=== PATIENT | female | born 1990 | race Caucasian/White ===

== ENCOUNTER 2018-12-26 16:37 | Emergency (ER) | payer OTHER ==
[2018-12-26] MEDS ORDERED: SODIUM CHLORIDE 1,000 ML IV STA (16:44)
[2018-12-26] MEDS ORDERED: ONDANSETRON 4 MG/2 ML VIAL IVPUSH ONE (16:44)
--- NOTE | 2018-12-26 16:44 | PDOC ---
Rapid Medical Evaluation Time Seen by Provider: 12/26/18 16:42 Medical Evaluation: 12/26/18 16:42 I have performed a brief in-person evaluation of this patient. The patient presents with a chief complaint of: abdominal and perirectal pain Pertinent physical exam findings: epigastric tenderness with guarding. rectal- deferred I have ordered the following: abd w/u The patient will proceed to the ED for further evaluation. Discharge Disposition - Diagnosis Abdominal pain - Referrals - Patient Instructions - Post Discharge Activity
[2018-12-26 16:45] VITALS: TEMP 97.8; BMI 30.9
[2018-12-26] MEDS ORDERED: ONDANSETRON 4 MG/2 ML VIAL ONE (16:59)
[2018-12-26 17:24] LABS: BASO % 0.5 % (0-2.0); EOS % 3.9 % (0-4.5); HEMATOCRIT 40.7 % (32.4-45.2); HEMOGLOBIN 13.3 GM/dL (10.7-15.3); LYMPH % 27.9 % (8-40); MCH 29.4 pg (25.7-33.7); MCHC 32.7 g/dl (32.0-36.0); MEAN CELL VOLUME 90.1 fl (80-96); MEAN PLT VOLUME 9.7 fl (7.5-11.1); MONO % 6.4 % (3.8-10.2); NEUT % 61.3 % (42.8-82.8); PLATELET COUNT 225 K/MM3 (134-434); RBC 4.51 M/mm3 (3.60-5.2); RDW 13.5 % (11.6-15.6); WHITE BLOOD COUNT 8.7 K/mm3 (4.0-10.0)
[2018-12-26 18:00] LABS: ALBUMIN 3.6 g/dl (3.4-5.0); BILIRUBIN,TOTAL 0.7 mg/dL (0.2-1); BLOOD UREA NITROGEN 8.3 mg/dL (7-18); CALCIUM 8.8 mg/dL (8.5-10.1); CREATININE 0.7 mg/dL (0.55-1.3); POTASSIUM 4.2 mmol/L (3.5-5.1)
[2018-12-26] MEDS ORDERED: ACETAMINOPHEN 1000 MG/100 ML VIAL (NON FORMULARY) IVPB ONE (18:05)
[2018-12-26 18:07] LABS: URINE APPEARANCE CLEAR; URINE BILIRUBIN NEGATIVE (NEGATIVE); URINE COLOR YELLOW; URINE GLUCOSE (UA) NEGATIVE (NEGATIVE); URINE KETONE TRACE (NEGATIVE); URINE LEUK ESTERASE NEGATIVE (NEGATIVE); URINE NITRITE NEGATIVE (NEGATIVE); URINE PROTEIN NEGATIVE (NEGATIVE); URINE UROBILINOGEN 0.2 mg/dL (0.2-1.0)
[2018-12-26] MEDS ORDERED: ACETAMINOPHEN INJECTION 100 ML IVPB ONE (18:09)
[2018-12-26] MEDS ORDERED: FAMOTIDINE 20 MG/50 ML IVPB 20 MG/50 ML MG IVPB ONE ×2 (19:01→20:23)
[2018-12-26] MEDS ORDERED: MAG HYDROX/AL HYDROX/SIMETH 30 ML UNIT-DOSE CUP PO ONE (19:01)
[2018-12-26] MEDS ORDERED: LIDOCAINE HCL 2% JELLY 10 ML CARTRIDGE PR ONE (19:01)
[2018-12-26] MEDS ORDERED: LIDOCAINE HCL 2% JELLY 10 ML CARTRIDGE ONE (20:23)
[2018-12-26] MEDS ORDERED: MAG HYDROX/AL HYDROX/SIMETH 30 ML UNIT-DOSE CUP ONE (20:23)
--- NOTE | 2018-12-26 21:32 | PDOC ---
History of Present Illness - General Chief Complaint: Pain, Acute Stated Complaint: ABD PAIN Time Seen by Provider: 12/26/18 16:42 History Source: Patient Exam Limitations: Language Barrier (fish checker ID#[id number]) Past History - Past Medical History Allergies/Adverse Reactions: Allergies Allergy/AdvReac Type Severity Reaction Status Date / Time No Known Allergies Allergy Verified 12/26/18 16:45 Home Medications: Ambulatory Orders Famotidine [Pepcid -] 20 mg PO DAILY #30 tablet 12/26/18 Hydrocortisone Acetate [Anusol Hc Suppository -] 25 mg RC DAILY #14 supp.rect Lidocaine 2% Uro-Jet [Xylocaine 2% Uro-Jet] 10 ml MT DAILY PRN #7 cartridge 06/04 Asthma: Yes COPD: No Other medical history: HERNIA - Suicide/Smoking/Psychosocial Hx Smoking History: Never smoked Hx Alcohol Use: No Drug/Substance Use Hx: No *Physical Exam - Vital Signs Last Vital Signs Temp Pulse Resp BP Pulse Ox 97.8 F 79 16 117/82 99 12/26/18 16:43 12/26/18 16:43 12/26/18 16:43 12/26/18 16:43 12/26/18 16:43 - Physical Exam General Appearance: No: Apparent Distress Respiratory/Chest: positive: Lungs Clear, Normal Breath Sounds. negative: Respiratory Distress Cardiovascular: positive: Regular Rhythm, Regular Rate, S1, S2. negative: Murmur Gastrointestinal/Abdominal: positive: Normal Bowel Sounds, Soft. negative: Tender, Distended, Guarding, Rebound, Hernia, Mass Rectal Exam: positive: hemorrhoids (nonthrombosed, not bleeding) Neurologic: positive: Alert, Normal Mood/Affect ED Treatment Course - LABORATORY CBC & Chemistry Diagram: 12/26/18 17:00 12/26/18 17:00 - ADDITIONAL ORDERS Additional order review: Laboratory Results 12/26/18 12/26/18 12/26/18 17:25 17:00 16:55 Sodium 139 Potassium 4.2 Chloride 105 Carbon Dioxide 26 Anion Gap 7 L BUN 8.3 Creatinine 0.7 Est GFR (CKD-EPI)AfAm 137.62 Est GFR (CKD-EPI)NonAf 118.74 Random Glucose 77 Calcium 8.8 Total Bilirubin 0.7 AST 20 ALT 16 Alkaline Phosphatase 90 Total Protein 7.0 Albumin 3.6 Lipase 131 Urine Color Yellow Urine Appearance Clear Urine pH 7.0 Ur Specific [place] 1.016 Urine Protein Negative Urine Glucose (UA) Negative Urine Ketones Trace H Urine Blood Negative Urine Nitrite Negative Urine Bilirubin Negative Urine Urobilinogen 0.2 Ur Leukocyte Esterase Negative Urine HCG, Qual Negative 12/26/18 17:00 RBC 4.51 MCV 90.1 MCHC 32.7 RDW 13.5 MPV 9.7 Neutrophils % 61.3 Lymphocytes % 27.9 Monocytes % 6.4 Eosinophils % 3.9 Basophils % 0.5 - Medications Given in the ED: ED Medications Discontinued Medications Generic Name Dose Route Start Last Admin Trade Name Freq PRN Reason Stop Dose Admin Acetaminophen 1,000 mg 12/26/18 18:05 12/26/18 18:09 Ofirmev Injection - IVPB 12/26/18 18:06 1,000 mg ONCE ONE Administration Al Hydroxide/Mg Hydroxide 30 ml 12/26/18 19:01 12/26/18 20:01 Mylanta Oral Suspension - PO 12/26/18 19:02 30 ml ONCE ONE Administration Sodium Chloride 1,000 mls @ 1,000 mls/hr 12/26/18 16:44 12/26/18 17:12 Normal Saline - IV 12/26/18 17:43 1,000 mls/hr ASDIR STA Administration Famotidine/Sodium Chloride 20 mg in 50 mls @ 100 mls/hr 12/26/18 19:01 20:01 Pepcid 20 Mg Premixed Ivpb - IVPB 12/26/18 19:30 100 mls/hr ONCE ONE Administration Lidocaine HCl 30 ml 12/26/18 19:01 12/26/18 20:59 Xylocaine 2% Uro-Jet MT 12/26/18 19:02 30 ml ONCE ONE Administration Ondansetron HCl 4 mg 12/26/18 16:44 12/26/18 17:12 Zofran Injection IVPUSH 12/26/18 16:45 4 mg ONCE ONE Administration Medical Decision Making - Medical Decision Making 28 y/o F with hx of asthma, hiatal hernia presents with epigastric pain worse with food along with NBNB emesis and anal pain x 4 days. Patient has Omeprazole but states does not help much. Patient Denies fever, sob, cp, diarrhea, constipation/hard stools, black/bloody stools, anal intercourse, urinary complaints. Denies prior abdominal surgeries. Epigastric pain - probable gastritis (could be related to hiatal hernia though no palpable hernia on exam) Labs reviewed and unremarkable Patient feeling better after getting Pepcid and Maalox; no longer in abdominal pain External hemorrhoids - 2% viscous lidocaine given 12/26/18 21:31 *DC/Admit/Observation/Transfer Diagnosis at time of Disposition: External hemorrhoids Gastritis Qualifiers: Gastritis type: unspecified gastritis Chronicity: unspecified Gastritis bleeding: without bleeding Qualified Code(s): K29.70 - Gastritis, unspecified, without bleeding - Discharge Dispostion Disposition: HOME Condition at time of disposition: Stable Decision to Admit order: No - Prescriptions Prescriptions: Famotidine [Pepcid -] 20 mg PO DAILY #30 tablet Hydrocortisone Acetate [Anusol Hc Suppository -] 25 mg RC DAILY #14 supp.rect Lidocaine 2% Uro-Jet [Xylocaine 2% Uro-Jet] 10 ml MT DAILY PRN #7 cartridge PRN Reason: Pain - Referrals - Patient Instructions Printed Discharge Instructions: DI for Gastritis, DI for Hemorrhoids Additional Instructions: Thank you for choosing [facility]. It was a pleasure taking care of you. Your labs were normal You were prescribed Pepcid as your symptoms may be related to gastritis You were also noted with hemorrhoids -apply Lidocaine as needed for pain. You were also prescribed Ansuol - take daily as prescribed Follow-up with your doctor in 2 days Return to the Emergency Department if your symptoms worsen or persist or have other concerning symptoms. Gregory por elegir el [facility]. Fue un placer cuidar de ti. Tus laboratorios darnell normales Le recetaron Pepcid ya que gisell sntomas pueden estar relacionados con gastritis. Tambin se observ que murray hemorroides: aplique Lidocana segn sea necesario para el dolor. Tambin se le prescribi Ansuol - tome diariamente segn lo prescrito Seguimiento con elizabeth mdico en 2 colin. Regrese al Departamento de Emergencias si gisell sntomas empeoran o persisten o si tiene otros sntomas relacionados. Print Language: LUXEMBOURGER - Post Discharge Activity
[2018-12-27 00:59] VITALS: BP 123/80; PULSE 75
--- NOTE | 2018-12-27 09:30 | EKG ---
Test Reason : Blood Pressure : / mmHG Vent. Rate : 071 BPM Atrial Rate : 071 BPM P-R Int : 170 ms QRS Dur : 086 ms QT Int : 396 ms P-R-T Axes : 044 014 028 degrees QTc Int : 430 ms NORMAL SINUS RHYTHM WITH SINUS ARRHYTHMIA NORMAL ECG NO PREVIOUS ECGS AVAILABLE Confirmed by PATRICK CHARLES, EDWARD ([id number]) on 12/27/2018 9:30:17 AM Referred By: Confirmed By:EDWARD NGUYEN MD
== END 2018-12-26 22:38 | disposition home or self-care (01) ==
LOC: JER 16:37
PROC: 3E0337Z Introduction of Electrolytic and Water Balance Substance into Peripheral Vein, Percutaneous Approach (ICD-10-PCS; principal; 2018-12-26)
PROC: 3E033GC Introduction of Other Therapeutic Substance into Peripheral Vein, Percutaneous Approach (ICD-10-PCS; 2018-12-26)
PROC: 3E033GC Introduction of Other Therapeutic Substance into Peripheral Vein, Percutaneous Approach (ICD-10-PCS; 2018-12-26)
PROC: 3E033NZ Introduction of Analgesics, Hypnotics, Sedatives into Peripheral Vein, Percutaneous Approach (ICD-10-PCS; 2018-12-26)
DX: K29.70 Gastritis, unspecified, without bleeding (principal); K64.4 Residual hemorrhoidal skin tags
CPT/HCPCS: 36415; 80053; 81003; 83690; 84703; 85025; 87086; 93005; 93010; 96361; 96365; 96375; 99284-25; J0131; J7030

== ENCOUNTER 2019-08-21 12:45 | Emergency (ER) | payer OTHER ==
[2019-08-21 12:51] VITALS: BP 113/73; PULSE 89; TEMP 98.2; BMI 26.2
--- NOTE | 2019-08-21 13:45 | PDOC ---
History of Present Illness - General Chief Complaint: Cold Symptoms Stated Complaint: FEVER Time Seen by Provider: 08/21/19 13:29 History Source: Patient - History of Present Illness Initial Comments: 08/21/19 13:54 Chief complaint: Fever, cough Patient is a 29-year-old female with a history of asthma, who has 3 days of fever, cough and sore throat. Patient is not vomiting. Patient used her inhaler yesterday and took Motrin yesterday did not use any medicine today. No sick contacts. No travel. GENERAL/CONSTITUTIONAL: No fever, weakness. dizziness HEAD, EYES, EARS, NOSE AND THROAT: No change in vision. No ear pain or discharge. + sore throat. CARDIOVASCULAR: No chest pain RESPIRATORY: No shortness of breath +cough GASTROINTESTINAL: No pain, nausea, vomiting, diarrhea or constipation GENITOURINARY: No dysuria MUSCULOSKELETAL: No neck or back pain SKIN: No rash NEUROLOGIC: No headache, vertigo, loss of consciousness, or loss of sensation. GENERAL: The patient is awake, alert, and fully oriented, in no acute distress. HEAD: Normal with no signs of trauma. EYES: Pupils equal, round and reactive to light, sclera anicteric, conjunctiva clear. ENT: pharynx: Minimal erythema, no exudate, uvula midline NECK: supple CHEST: clear, slightly tight with cough nontender, rr ABD: soft, nontender BACK: no tenderness or signs of injury EXTREMITIES: Normal range of motion, no edema. NEUROLOGICAL: Normal speech, normal gait. SKIN: Warm, Dry Past History - Past Medical History Allergies/Adverse Reactions: Allergies Allergy/AdvReac Type Severity Reaction Status Date / Time No Known Allergies Allergy Verified 12/26/18 16:45 Home Medications: Ambulatory Orders NK [No Known Home Medication] 08/21/19 Asthma: Yes COPD: No - Psycho Social/Smoking Cessation Hx Smoking History: Never smoked Information on smoking cessation initiated: No Hx Alcohol Use: No Drug/Substance Use Hx: No *Physical Exam - Vital Signs Last Vital Signs Temp Pulse Resp BP Pulse Ox 98.2 F 89 17 113/73 100 08/21/19 12:48 08/21/19 12:48 08/21/19 12:48 08/21/19 12:48 08/21/19 12:48 Medical Decision Making - Medical Decision Making 08/21/19 13:56 29-year-old female with history of asthma, with 3 days of URI, fever, cough, sore throat. Patient is not hypoxic and is not in any respiratory distress. Will do flu swab, strep, give DuoNeb and Motrin. Strep and flu are negative, patient feels better after treatment, she has an albuterol pump. Discussed issues, findings, results, applicable medications and treatments and follow-up. All these were understood and all questions were answered 08/21/19 14:42 Discharge - Discharge Information Problems reviewed: Yes Clinical Impression/Diagnosis: Upper respiratory infection Qualifiers: URI type: unspecified viral URI Qualified Code(s): J06.9 - Acute upper respiratory infection, unspecified Condition: Stable Disposition: HOME - Admission No - Follow up/Referral - Patient Discharge Instructions Patient Printed Discharge Instructions: DI for Viral Upper Respiratory Infection -- Adult Additional Instructions: Drink 2-3 L of water daily Use your albuterol inhaler for any wheezing or asthma symptoms Take Tylenol 650 mg every 4 hours or Motrin 600 mg every 6 hours for fever and pain Return to the nearest ER if short of breath, unable to swallow or feeling sicker Followup with your doctor in one to 2 days - Post Discharge Activity Work/Back to School Note: Back to Work
[2019-08-21] MEDS ORDERED: ALBUTEROL SO4 2.5/IPRATROPIUM 0.5 INH SOL 3 ML VIAL.NEB. NEB ONE ×2 (13:53→13:59)
[2019-08-21] MEDS ORDERED: IBUPROFEN 600 MG TABLET (FP) PO ONE ×2 (13:54→13:59)
== END 2019-08-21 14:48 | disposition home or self-care (01) ==
LOC: JERFT 12:45
PROC: 3E0F7GC Introduction of Other Therapeutic Substance into Respiratory Tract, Via Natural or Artificial Opening (ICD-10-PCS; principal; 2019-08-21)
DX: J06.9 Acute upper respiratory infection, unspecified (principal); J45.909 Unspecified asthma, uncomplicated
CPT/HCPCS: 87070; 87804; 87880; 94640; 99283-25

== ENCOUNTER 2021-03-03 10:19 | Emergency (ER) | payer OTHER ==
[2021-03-03 10:25] VITALS: BP 107/72; PULSE 64; TEMP 98.4; BMI 26.9
[2021-03-03] MEDS ORDERED: ONDANSETRON 4 MG TABLET PO ONE (10:44)
[2021-03-03] MEDS ORDERED: FAMOTIDINE 20 MG TABLET PO ONE (10:44)
[2021-03-03] MEDS ORDERED: ACETAMINOPHEN 500 MG TABLET (FP) PO ONE (10:44)
[2021-03-03] MEDS ORDERED: ACETAMINOPHEN 500 MG TABLET (FP) ONE (10:49)
[2021-03-03] MEDS ORDERED: ONDANSETRON *ODT* 4 MG TABLET ONE (10:49)
[2021-03-03] MEDS ORDERED: FAMOTIDINE 20 MG TABLET ONE (10:49)
== END 2021-03-03 11:30 | disposition home or self-care (01) ==
LOC: JER 10:19
DX: R10.13 Epigastric pain (principal); R11.2 Nausea with vomiting, unspecified; R19.7 Diarrhea, unspecified
CPT/HCPCS: 99283-25; C9803; U0003; U0005

== ENCOUNTER 2022-07-09 20:41 | Emergency (ER) | payer OTHER ==
[2022-07-09 20:53] VITALS: BP 124/82; PULSE 85; RESP 17; TEMP 97.8; BMI 28.8
[2022-07-09 22:43] LABS: BASO % 0.3 % (0-2.0); EOS % 3.7 % (0-4.5); HEMATOCRIT 41.8 % (32.4-45.2); HEMOGLOBIN 13.8 GM/dL (10.7-15.3); LYMPH % 25.2 % (8-40); MCH 29.9 pg (25.7-33.7); MCHC 32.9 g/dl (32.0-36.0); MEAN CELL VOLUME 90.9 fl (80-96); MEAN PLT VOLUME 8.8 fl (7.5-11.1); MONO % 7.3 % (3.8-10.2); NEUT % 63.5 % (42.8-82.8); PLATELET COUNT 234 10^3/uL (134-434); RDW 13.8 % (11.6-15.6); WHITE BLOOD COUNT 9.1 K/mm3 (4.0-10.0)
[2022-07-09 22:51] LABS: INR 0.91 (0.83-1.09); PROTHROMBIN TIME (PATIENT) 10.5 SEC (9.7-13.0)
[2022-07-09] MEDS ORDERED: ACETAMINOPHEN 325 MG TABLET (FP) PO ONE (22:51)
[2022-07-09 22:53] LABS: ACTIVATED PTT 30.6 SECONDS (25.2-36.5)
[2022-07-09] MEDS ORDERED: ACETAMINOPHEN 325 MG TABLET (FP) ONE (22:56)
[2022-07-09 23:14] LABS: PH,URINE 6.5 (5.0-8.0); URINE APPEARANCE CLEAR; URINE BILIRUBIN NEGATIVE (NEGATIVE); URINE COLOR YELLOW; URINE GLUCOSE (UA) NEGATIVE (NEGATIVE); URINE KETONE NEGATIVE (NEGATIVE); URINE LEUK ESTERASE NEGATIVE (NEGATIVE); URINE NITRITE NEGATIVE (NEGATIVE); URINE PROTEIN NEGATIVE (NEGATIVE); URINE UROBILINOGEN 0.2 mg/dL (0.2-1.0)
[2022-07-09 23:49] LABS: BLOOD UREA NITROGEN 6.8 mg/dL (7-18); CALCIUM 8.9 mg/dL (8.5-10.1)
[2022-07-09 23:50] LABS: ALBUMIN 3.6 g/dl (3.4-5.0)
[2022-07-09 23:53] LABS: CREATININE 0.6 mg/dL (0.55-1.3)
[2022-07-09 23:54] LABS: BILIRUBIN,TOTAL 0.4 mg/dL (0.2-1); TOT PROT 6.8 g/dl (6.4-8.2)
== END 2022-07-10 01:38 | disposition home or self-care (01) ==
LOC: JER 20:41
DX: O26.891 Other specified pregnancy related conditions, first trimester (principal); R10.13 Epigastric pain; Z3A.10 10 weeks gestation of pregnancy
CPT/HCPCS: 36415; 76705-TC; 76801-TC; 80053; 81003; 83690; 84702; 85025; 85610; 85730; 86850; 86900; 86901; 99284-25

== ENCOUNTER 2023-10-09 09:13 | Emergency (ER) | payer OTHER ==
[2023-10-09 09:27] VITALS: RESP 16; TEMP 98.2; BMI 27.4
[2023-10-09 11:03] LABS: PH,URINE 6.5 (5.0-8.0); URINE APPEARANCE CLEAR; URINE BILIRUBIN NEGATIVE (NEGATIVE); URINE COLOR YELLOW; URINE GLUCOSE (UA) NEGATIVE (NEGATIVE); URINE KETONE 1+ (NEGATIVE); URINE LEUK ESTERASE NEGATIVE (NEGATIVE); URINE NITRITE NEGATIVE (NEGATIVE); URINE PROTEIN NEGATIVE (NEGATIVE); URINE UROBILINOGEN 0.2 mg/dL (0.2-1.0)
[2023-10-09 11:06] LABS: HCG,QUALITATIVE URINE Negative
[2023-10-09] MEDS ORDERED: FAMOTIDINE 20 MG/50 ML IVPB 20 MG/50 ML MG IVPB ONE (11:31)
[2023-10-09] MEDS ORDERED: morphine SULFATE 4 MG/ML VIAL ONE (11:31)
[2023-10-09] MEDS: SODIUM CHLORIDE 1,000 ML IV STA (11:57)
[2023-10-09] MEDS: FAMOTIDINE 20 MG/50 ML IVPB 20 MG/50 ML MG IVPB ONE (11:57)
[2023-10-09 12:12] LABS: BASO % 0.4 % (0-2.0); EOS % 4.3 % (0-4.5); HEMATOCRIT 40.6 % (32.4-45.2); HEMOGLOBIN 13.2 GM/dL (10.7-15.3); LYMPH % 37.8 % (8-40); MCHC 32.6 g/dl (32.0-36.0); MEAN CELL VOLUME 92.1 fl (80-96); MEAN PLT VOLUME 10.1 fl (7.5-11.1); MONO % 7.5 % (3.8-10.2); PLATELET COUNT 216 10^3/uL (134-434); RBC 4.41 M/mm3 (3.60-5.2); WHITE BLOOD COUNT 5.3 K/mm3 (4.0-10.0)
[2023-10-09] MEDS: morphine CARPU-JECT 4 MG/1 ML DISP.SYRIN IVPUSH ONE (12:22)
[2023-10-09 12:34] LABS: POTASSIUM 4.2 mmol/L (3.5-5.1)
[2023-10-09 12:36] LABS: CALCIUM 8.6 mg/dL (8.5-10.1)
[2023-10-09 12:37] LABS: ALBUMIN 3.6 g/dl (3.4-5.0); BLOOD UREA NITROGEN 11.3 mg/dL (7-18); MAGNESIUM 2.1 mg/dL (1.8-2.4)
[2023-10-09 12:41] LABS: BILIRUBIN,TOTAL 0.8 mg/dL (0.2-1); TOT PROT 6.4 g/dl (6.4-8.2)
[2023-10-09 12:45] LABS: CREATININE 0.6 mg/dL (0.55-1.3)
[2023-10-09] MEDS ORDERED: ACETAMINOPHEN INJECTION 100 ML IVPB ONE (14:11)
[2023-10-09] MEDS: ACETAMINOPHEN 1000 MG/100 ML BAG IVPB ONE (14:13)
[2023-10-09] MEDS: SUCRALFATE 1 GM/10 ML UNIT DOSE CUPS PO ONE (15:18)
[2023-10-09 16:29] VITALS: BP 98/57; PULSE 70
== END 2023-10-09 16:29 | disposition home or self-care (01) ==
LOC: JER 09:13
PROC: 3E033GC Introduction of Other Therapeutic Substance into Peripheral Vein, Percutaneous Approach (ICD-10-PCS; principal; 2023-10-09)
PROC: 3E033NZ Introduction of Analgesics, Hypnotics, Sedatives into Peripheral Vein, Percutaneous Approach (ICD-10-PCS; 2023-10-09)
PROC: 3E0337Z Introduction of Electrolytic and Water Balance Substance into Peripheral Vein, Percutaneous Approach (ICD-10-PCS; 2023-10-09)
DX: R10.84 Generalized abdominal pain (principal); R11.2 Nausea with vomiting, unspecified; K29.00 Acute gastritis without bleeding
CPT/HCPCS: 36415; 76705-TC; 80053; 81003; 83690; 83735; 84703; 85025; 87086; 99284-25; J0131